=== PATIENT | female | born 1980 | race Caucasian/White ===

== ENCOUNTER 2016-11-23 11:26 | Outpatient (CLI) | payer OTHER | END 2016-11-23 13:41 | disposition short-term general hospital (02) | LOC: GENOP 11:26 → EDBD 11:26 → GENOP 13:41 | DX: O42.913 Preterm premature rupture of membranes, unspecified as to length of time between rupture and onset of labor, third trimester (principal); Z3A.33 33 weeks gestation of pregnancy | CPT/HCPCS: 96360; 96365; 96372; 96376; J0290; J0702; J3475; J7050; J7120 ==